=== PATIENT | female | born 1995 | race Two or more races ===

== ENCOUNTER 2019-05-15 00:09 | Emergency (ER) | payer SELFPAY ==
[~2019-05-15] VITALS: Ht 165.1 cm; Wt 63.5 kg
[2019-05-15 00:20] VITALS: BP 132/77
--- NOTE | 2019-05-15 00:20 | NUR ---
TO BED # 02 AMBULATORY
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
--- NOTE | 2019-05-15 00:32 | NUR ---
Dr. Pizarro examining patient.
--- NOTE | 2019-05-15 01:17 | NUR ---
XRAY AT BEDSIDE
[2019-05-15 01:55] VITALS: BP 129/69
--- NOTE | 2019-05-15 01:55 | NUR ---
PT DISCHARGED BY DR BELLO WITH PAPERWORK. EDUCATED PT REGARDING MEDICATION AND D/C INSTRUCTIONS. PT VERBALIZED UNDERSTANDING OF TEACHING. TOLD PT TO FOLLOW UP WITH PCP AND WHEN TO RETURN TO ED. PT AT STABLE CONDITION. ALL QUESTIONS ANSWERED.
== END 2019-05-15 01:55 | disposition home or self-care (01) ==
LOC: MED 00:09
DX: S97.101A Crushing injury of unspecified right toe(s), initial encounter (principal); F17.200 Nicotine dependence, unspecified, uncomplicated; Z71.6 Tobacco abuse counseling; W23.0XXA Caught, crushed, jammed, or pinched between moving objects, initial encounter; Y93.89 Activity, other specified; Y92.89 Other specified places as the place of occurrence of the external cause; Y99.8 Other external cause status
CPT/HCPCS: 73630; 99283; Q0092